=== PATIENT | male | born 1990 | race Caucasian/White ===

== ENCOUNTER 2017-07-21 16:44 | Emergency (ER) | payer SELFPAY ==
[2017-07-21] MEDS ORDERED: Albuterol 0.083% Inhal Sol (2.5 mg/3 mL) UD IH STA (17:38)
--- NOTE | 2017-07-21 17:41 | C.PDOC ---
History Of Present Illness 26 yo male w/o significant PMHx come in for evaluation of fever, nasal congestion, runny nose, sore throat, productive cough with clear sputum developed for past 3 days, (+) bodyaches. Pt reports, throat pain worsen today with fever. Otherwise, pt denies lethargy, severe headache, drooling, dyspnea, SOB, wheezing, CP, abd. pain, vomiting, change in appetite, watery diarrhea, UTI sx. Ambulate to Ed for evaluation, not in any apparent distress. Occasional dry cough noted. Time Seen by Provider: 07/21/17 17:28 Chief Complaint (Nursing): Cough, Cold, Congestion History Per: Patient Past Medical History Reviewed: Historical Data, Nursing Documentation, Vital Signs Vital Signs: Last Vital Signs Temp 98.7 F 07/21/17 18:32 Pulse 95 H 07/21/17 18:32 Resp 18 07/21/17 18:32 BP 132/78 07/21/17 18:32 Pulse Ox 97 07/21/17 18:32 - Medical History PMH: No Chronic Diseases Family History: States: Unknown Family Hx - Social History Hx Tobacco Use: No Hx Alcohol Use: No Hx Substance Use: No - Immunization History Hx Tetanus Toxoid Vaccination: No Hx Influenza Vaccination: No Hx Pneumococcal Vaccination: No Review Of Systems Except As Marked, All Systems Reviewed And Found Negative. Constitutional: Positive for: Fever, Chills, Malaise ENT: Positive for: Nose Discharge, Nose Congestion, Throat Pain, Throat Swelling. Negative for: Ear Pain, Ear Discharge Cardiovascular: Negative for: Chest Pain, Palpitations, Light Headedness Respiratory: Positive for: Cough. Negative for: Shortness of Breath, Wheezing Gastrointestinal: Negative for: Nausea, Vomiting, Abdominal Pain Genitourinary: Negative for: Dysuria Musculoskeletal: Negative for: Neck Pain, Back Pain Neurological: Negative for: Weakness, Numbness, Altered Mental Status, Headache , Dizziness Physical Exam - Physical Exam Appears: Well, Non-toxic, No Acute Distress Skin: Normal Color, Warm, Dry, No Rash Head: Normacephalic Eye(s): bilateral: PERRL Ear(s): Bilateral: Normal Nose: No Flaring, Discharge (B/l nasal congestion) Oral Mucosa: Moist, No Drooling Tongue: Normal Appearing Lips: Normal Appearing Throat: Erythema (mild b/L), No Exudate, No Drooling Neck: Trachea Midline, Supple, Other ((-) meningeal sign) Cardiovascular: Rhythm Regular, No Murmur, No JVD Respiratory: No Decreased Breath Sounds, No Accessory Muscle Use, No Stridor, No Wheezing Gastrointestinal/Abdominal: Soft, No Tenderness, No Distention, No Guarding Extremity: Normal ROM, No Pedal Edema, No Deformity Neurological/Psych: Oriented x3, Normal Speech, Normal Motor, Normal Sensation, Normal Reflexes ED Course And Treatment O2 Sat by Pulse Oximetry: 98 Pulse Ox Interpretation: Normal - Radiology CXR: Interpreted by Me, Viewed By Me CXR Interpretation: Yes: No Acute Disease Progress Note: On re-evaluation, pt is awake, comforable, not in any apparent distress. fever improved, hemodynamicaly stable. Non-toxic, tolerate Po well in ED. PulsEOx 98% ra. ENT: exam c/w mild pharyngitis. uvula midline, no edema. neck: Supple, (-) meingeals ign. Lungs: CTA B/L, BS equal B/L. Abd: benign, (-) guarding, (-) rebound. Back: (-) CVA tenderness. Influenza A(+). Pt has clinical findings c/w Influenza A. Pt advised. ref. to f/u with PMD in 2-3 days for re-eval. return to ED if any worsening or new changes. Disposition Counseled Patient/Family Regarding: Studies Performed, Diagnosis, Need For Followup, Rx Given - Disposition Referrals: [facility] [Outside] Disposition: HOME/ ROUTINE Disposition Time: 18:12 Condition: STABLE Additional Instructions: ENCOURAGE FLUIDS TAKE MEDICATION PRESCRIBED FOLLOW UP WITH PMD IN 2-3 DAYS FOR RE-EVALUATION. RETURN TO ED IF ANY WORSENING OR NEW CHANGES. Prescriptions: Ibuprofen [Motrin Tab] 600 mg PO Q6 #20 tab Oseltamivir Phosphate [Tamiflu] 75 mg PO BID #10 capsule predniSONE [predniSONE Tab] 40 mg PO DAILY #6 tab Instructions: Influenza (ED) Forms: [facility] Computer (Bengali) Print Language: KYRGYZ - Clinical Impression Clinical Impression: Influenza
[2017-07-21] MEDS ORDERED: Albuterol 0.083% Inhal Sol (2.5 mg/3 mL) UD ONE (17:52)
[2017-07-21 18:32] VITALS: BP 132/78; PULSE 95; RESP 18; TEMP 98.7
--- NOTE | 2017-07-21 18:32 | RAD ---
HISTORY: Cough COMPARISON: None available. TECHNIQUE: Chest PA and lateral FINDINGS: LUNGS: No focal consolidation. Please note that chest x-ray has limited sensitivity for the detection of pulmonary masses. PLEURA: No significant pleural effusion identified. No definite pneumothorax . CARDIOVASCULAR: The cardiomediastinal silhouette appears within normal limits of size. OSSEOUS STRUCTURES: No acute osseous abnormality identified. VISUALIZED UPPER ABDOMEN: Unremarkable. OTHER FINDINGS: None. IMPRESSION: No focal consolidation, significant pleural effusion, or definite pneumothorax identified.
[2017-07-22 20:50] VITALS: O2SAT 98
== END 2017-07-21 18:47 | disposition home or self-care (01) ==
LOC: C.ER 16:44
DX: J11.1 Influenza due to unidentified influenza virus with other respiratory manifestations (principal)